=== PATIENT | female | born 1940 | race Caucasian/White ===

== ENCOUNTER → 2018-07-29 | Outpatient (CLI) | payer MEDICARE, OTHER ==
[~2018-07-29] MED LIST: AMLOPIDINE; AMOXICILLIN 8751 TAB PO; CO Q-1010 M1 PO; ENALAPRIL; GLUCOPHAGE; GLUCOPHAGE500 MG/TAB PO; HCTZ 25MG TAB25 MG PO; LEVEMIR100 U/ML; MVI; NOVLOG SQ; PRINIVIL10 MG PO; TAMIFLU 75MG75 MG PO; TUSSIONEX PO; VITAMIN C1 TAB PO; ZESTRIL40 MG PO
== END ==
LOC: COL.RAD 11:11
DX: C50.911 Malignant neoplasm of unspecified site of right female breast (principal); Z90.710 Acquired absence of both cervix and uterus
CPT/HCPCS: Q9967

== ENCOUNTER → 2018-07-30 | Outpatient (CLI) | payer MEDICARE, OTHER | LOC: MC.RAD 07-28 14:00 | DX: C50.911 Malignant neoplasm of unspecified site of right female breast (principal) | CPT/HCPCS: G0279 ==

== ENCOUNTER 2018-08-28 06:33 | Day surgery (SDC) | payer MEDICARE, OTHER ==
[~2018-08-28] VITALS: Ht 165.1 cm; Wt 108.8 kg
[2018-08-28] VITALS (12 sets, daily range): BP systolic 142–216; BP diastolic 50–111; PULSE 60–96; TEMP 97.1–98.9
[~2018-08-28 06:33] MED LIST changes: +MULTIPLE VITAMI1 TA1 PO; -MVI; -VITAMIN C1 TAB PO; +VITAMIN C500 MG PO
[2018-08-28] MEDS ORDERED: PRINIVIL40 MG PO (08:02)
[2018-08-28] MEDS ORDERED: HCTZ 25MG TAB25 MG PO (08:03)
[2018-08-28] MEDS ORDERED: NORVASC 5MG5 MG/TAB PO (08:04)
[2018-08-28] MEDS ORDERED: NOVOLIN R100 U/ML SQ (08:08)
[2018-08-28] MEDS ORDERED: NORCO 325 MG-51 TAB PO (14:14)
[2018-08-29 03:07] VITALS: BP 144/59; PULSE 75; TEMP 98.3
[2018-08-29 07:47] VITALS: BP 164/66; PULSE 74; TEMP 98.3
== END 2018-08-29 11:14 | disposition home or self-care (01) ==
LOC: SDCO 06:33 → SURG 18:19 → SDCO 08-29 11:14
DX: C50.311 Malignant neoplasm of lower-inner quadrant of right female breast (principal); C77.3 Secondary and unspecified malignant neoplasm of axilla and upper limb lymph nodes; E11.9 Type 2 diabetes mellitus without complications; I10 Essential (primary) hypertension; E66.01 Morbid (severe) obesity due to excess calories; Z68.39 Body mass index [BMI] 39.0-39.9, adult; M19.90 Unspecified osteoarthritis, unspecified site; Z90.710 Acquired absence of both cervix and uterus; Z79.4 Long term (current) use of insulin; Z88.5 Allergy status to narcotic agent; Z88.8 Allergy status to other drugs, medicaments and biological substances; Z88.6 Allergy status to analgesic agent
CPT/HCPCS: OP; 99222; A9541; J0360; J0690; J1170; J1815; J1940; J2250; J2270; J2405; J2550; J2704; J2795; J3010; J7030; Q9968

== ENCOUNTER 2018-09-10 07:38 | Day surgery (SDC) | payer MEDICARE, OTHER ==
[2018-09-10] VITALS (10 sets, daily range): BP systolic 148–181; BP diastolic 60–83; PULSE 63–68; TEMP 97.8–98
[~2018-09-10] VITALS: Ht 165.1 cm; Wt 108.8 kg
[~2018-09-10 07:38] MED LIST changes: +NORCO 325 MG-51 TAB PO; +NORVASC 5MG5 MG/TAB PO; +NOVOLIN R100 U/ML SQ; +PRINIVIL40 MG PO
--- NOTE | 2018-09-10 08:21 | NUR ---
Patient is refusing to have PIV placed in left arm. She recently had sentinal lymph nodes removed from the Right arm and that is the operative arm today. Attempted to call Dr. Valencia at this time to confirm "OK" to place PIV in right arm. Will wait for response.
--- NOTE | 2018-09-10 08:50 | NUR ---
Per Dr. Valencia, patient may have her PIV in the right arm. PIV placed in the right wrist. Patient expresses gratitude for the care provided thusfar. BP rechecked and reads 164/77.
--- NOTE | 2018-09-10 12:25 | NUR ---
Patient up from OR. Drowsy but arouses to voice and touch. Friend at bedside. Dressing to right underarm is CDI. MARIO ALBERTO to bulb suction with bloody drainage present. Post op fluids infusing via gravity to right wrist. Post op VSS. Denies pain at this time. Denies further needs at this time.
--- NOTE | 2018-09-10 17:38 | NUR ---
Notified Dr. Valencia, patient is wanting to discharge tonnando, is trying to get ahold of her ride. States that if she is not able to get ahold of someone then she will have to stay the night because she does not have her house keys.
--- NOTE | 2018-09-10 17:58 | NUR ---
Patient has been up several times throughout the day, standby assist with cane. Steady gait. Tolerating diet without any complications. Dressing to right axcillary area without drainage. MARIO ALBERTO to bulb compression with bloody drainage present. Patient educated on how to empty and compress drain. All questions answered. Will report off to fishing game warden.
--- NOTE | 2018-09-10 19:30 | NUR ---
Discharge instructions reviewed with patient. Pt. demonstrated emptying MARIO ALBERTO drain for this nurse, does effectively. Medicated with [place] 5/325mg at this time, patient reports she does have pain meds at home. Patient verbalized understanding of instructions, measuring cup provided for emptying MARIO ALBERTO drain and recording output. Patient has a friend here for her ride home. DC'd SL from right wrist, angiocath intact.
--- NOTE | 2018-09-10 19:52 | NUR ---
Taken via w/c to private car for discharge home. Personal belongings and copy of discharge instructions sent with patient.
== END 2018-09-10 19:52 | disposition home or self-care (01) ==
LOC: SDCO 07:38 → SURG 12:26 → SDCO 19:52
DX: C77.3 Secondary and unspecified malignant neoplasm of axilla and upper limb lymph nodes (principal); C50.311 Malignant neoplasm of lower-inner quadrant of right female breast; I10 Essential (primary) hypertension; E11.9 Type 2 diabetes mellitus without complications; Z79.4 Long term (current) use of insulin; E78.00 Pure hypercholesterolemia, unspecified; Z88.5 Allergy status to narcotic agent; Z79.899 Other long term (current) drug therapy; Z90.710 Acquired absence of both cervix and uterus; Z88.6 Allergy status to analgesic agent; Z90.49 Acquired absence of other specified parts of digestive tract; R20.2 Paresthesia of skin
CPT/HCPCS: OP; J1815; J2250; J2405; J2550; J2704; J3010; J7030

== ENCOUNTER 2018-10-08 08:46 | Day surgery (SDC) | payer MEDICARE, OTHER ==
[~2018-10-08] VITALS: Ht 165.1 cm; Wt 111.4 kg
[2018-10-08] MEDS ORDERED: NORCO 325 MG-51 TAB PO (09:27)
[2018-10-08 09:34] VITALS: BP 167/69; PULSE 77; TEMP 97
--- NOTE | 2018-10-08 09:40 | NUR ---
TO RM 2 AT 0855- CALL LIGHT IN REACH FRIEND TINY AT BEDSIDE.
[2018-10-08 11:40] VITALS: BP 148/67; PULSE 73; TEMP 97.2
--- NOTE | 2018-10-08 11:40 | NUR ---
TO RM 2 PER CART FROM O.R. PATIENT AWAKE AND TALKING TO STAFF AND SHRADDHA FRANKS. DRESSINGS OVER PORT SITE AND LEFT SIDE OF NECK CLEAN DRY AND INTACT. DENIES PAIN OR DISCOMFORT AT SITES. DOES C/O "DISCOMFORT" AT THE IV SITE. DISCONTINUED IV AND INT- COVERED WITH COTTON BALL AND COBAN.
[2018-10-08 11:55] VITALS: BP 168/77; PULSE 71
--- NOTE | 2018-10-08 11:55 | NUR ---
RECEIVED WATER AND CRACKERS.
[2018-10-08 12:10] VITALS: BP 163/84; PULSE 72
--- NOTE | 2018-10-08 12:10 | NUR ---
ATE 100% AND TOLERATED WELL
--- NOTE | 2018-10-08 12:25 | NUR ---
AMBULATED TO BATHROOM VOIDED AND TOLERATED WELL.
--- NOTE | 2018-10-08 12:30 | NUR ---
FRIEND ASSISTING PATIENT DRESSED.
--- NOTE | 2018-10-08 12:45 | NUR ---
RECEIVED DISCHARGE INSTRUCTIONS AND VERBALIZED UNDERSTANDING.
--- NOTE | 2018-10-08 12:55 | NUR ---
DISCHARGED PER WC BY NURSING STAFF TO PRIVATE CAR IN CARE OF FRIEND TINY.
== END 2018-10-08 13:05 | disposition home or self-care (01) ==
LOC: SDCO 08:46
DX: C50.311 Malignant neoplasm of lower-inner quadrant of right female breast (principal); C77.3 Secondary and unspecified malignant neoplasm of axilla and upper limb lymph nodes; I10 Essential (primary) hypertension; M19.90 Unspecified osteoarthritis, unspecified site; E11.9 Type 2 diabetes mellitus without complications; Z88.6 Allergy status to analgesic agent; Z90.710 Acquired absence of both cervix and uterus; Z87.891 Personal history of nicotine dependence; Z79.84 Long term (current) use of oral hypoglycemic drugs; Z79.4 Long term (current) use of insulin; Z88.5 Allergy status to narcotic agent; Z90.11 Acquired absence of right breast and nipple; Z85.3 Personal history of malignant neoplasm of breast
CPT/HCPCS: C1788; J0690; J2405; J2704; J3010; J7030

== ENCOUNTER 2018-11-18 15:00 | Outpatient (RCR) | payer MEDICARE, OTHER | END 2018-11-22 | disposition home or self-care (01) | LOC: WSC | DX: R53.1 Weakness (principal) ==

== ENCOUNTER 2018-12-14 12:45 | Outpatient (RCR) | payer MEDICARE, OTHER | END 2019-02-19 09:21 | disposition home or self-care (01) | LOC: WSC 12:45 | DX: R53.1 Weakness (principal) ==